=== PATIENT | female | born 1945 | race Two or more races ===

== ENCOUNTER 2025-02-02 23:43 | Emergency (ER) | payer MEDICAID, SELFPAY ==
[2025-02-02 23:47] VITALS: BMI 35.2
[2025-02-02 23:51] VITALS: BP 120/59; PULSE 132; RESP 19; TEMP 36.8; O2SAT 97
--- NOTE | 2025-02-03 00:16 | PD.EDADULT ---
ED General RME/HPI General Chief complaint: General Adult/Misc Complain Stated complaint: BLEEDING FROM UROSTOMY Time Seen by Provider: 02/03/25 00:16 Arrival date/time: 02/02/25 23:43 79-year-old female with a colostomy bag presents with complaints of bleeding from the back. Patient states while trying to change the bag she ripped the bag off suddenly and the bleeding began. Patient denies any abdominal pain nausea or vomiting and states that the bleeding has decreased since being in the emergency department. Limitations: no limitations Related Data Home Medications ?Medication ?Instructions ?Recorded ?Confirmed atenolol 50 mg tablet 50 mg PO QDAY 11/30/22 11/30/22 hydroxyzine HCl 25 mg tablet 25 mg PO HS PRN Sleep 11/30/22 11/30/22 lisinopril 10 mg tablet 10 mg PO QDAY 11/30/22 11/30/22 Previous Rx's ?Medication ?Instructions ?Recorded hydrocodone 5 mg-acetaminophen 325 1 tab PO Q8H PRN pain #14 tabs 12/29/22 mg tablet Allergies Allergy/AdvReac Type Severity Reaction Status Date / Time No Known Drug Allergies Allergy Verified 02/02/25 23:51 Review of Systems Constitutional Constitutional: Denies chills and Denies fever(s) Cardiovascular Cardiovascular: Denies chest pain and Denies dyspnea Respiratory Respiratory: Denies cough and Denies dyspnea Gastrointestinal Gastrointestinal: Denies abdominal pain, Denies nausea and Denies vomiting Musculoskeletal Musculoskeletal: Denies back pain and Denies myalgias Integumentary/Breasts Skin/Breast: Denies sores and Reports wounds (Colostomy site) Hematologic/Lymphatic Hematologic/Lymphatic: Denies easy bleeding and Denies easy bruising Past Medical History Past Medical History NEUROLOGIC: Negative Neurological Disorders CARDIAC: Positive Cardiac Disorders and Hypertension; Negative Congestive Heart Failure RESPIRATORY: Negative Chronic Obstructive Pulmonary Disease (COPD) or Asthma GASTROINTESTINAL: Positive Gastrointestinal Disorders and Diverticulitis GENITOURINARY: Negative Genitourinary Disorders or Renal Disease REPRODUCTIVE: Positive Previous Pregnancies; Negative Endometriosis, Pelvic Inflammatory Disease or Uterine Prolapse MUSCULOSKELETAL: Negative Musculoskeletal Disorders ENDOCRINE: Negative Endocrine Disorders, Diabetes Mellitus Type 1 or Diabetes Mellitus Type 2 HEMATOLOGIC: Negative Blood Disorders or Sickle Cell Disease PSYCHO/SOCIAL: Positive Anxiety; Negative Depression OTHER HISTORY: Negative Autoimmune Disease, Blood Transfusions, Blood Transfusion Reaction, Anesthesia Reactions or Cancer Family History FAMILY HISTORY: Negative Family Psychiatric Problems, Family Respiratory Disorders, Family Cardiac Disorders, Family Gastrointestinal Problems, Family Cancer, Family Surgery or Family Anesthesia Reaction Surgical History SURGICAL: Positive Pacemaker and Abdominal Surgery Social History SMOKING STATUS: Never smoker ED Exam General Limitations: Present no limitations General appearance: Present alert and in no apparent distress Chest Chest inspection: Present normal inspection and symmetric chest wall rise Respiratory Respiratory exam: Present normal lung sounds bilaterally Cardiovascular Cardiovascular exam: Present regular rate, normal rhythm and normal heart sounds Abdominal Exam Abdominal exam: Present soft and other (Patent colostomy bag present scant bleeding no evidence of infection nontender abdomen otherwise unremarkable); Absent distention Extremities Exam Extremities exam: Present normal inspection and full ROM Back Exam Back exam: Present normal inspection and full ROM Neurological Exam Neurological exam: Present alert, oriented X3 and CN II-XII intact Psychiatric Psychiatric exam: Present normal affect and normal mood Skin Skin exam: Present warm, dry, intact and normal color Course Course Course Narrative: 79-year-old female presents with bleeding from colostomy bag. It appears to be superficial with rough handling of removing the bag. The bleeding has been well-controlled the ostomy is patent she is afebrile nontoxic-appearing and asymptomatic. Patient is educated on the appropriate way of removing colostomy bags and advised of the high vasculature and easy cause of bleeding. She is also advised to follow-up with her primary care provider as needed Quality Measures none Orders Category Date Time Status Colostomy Change Med 02/03/25 00:23 Once 1 applicatio TOPICAL X1 ONE Vital Signs Vital signs: Vital Signs Temperature 98.3 F 02/02/25 23:51 Pulse Rate 132 H 02/02/25 23:51 Respiratory Rate 19 02/02/25 23:51 Blood Pressure 120/59 L 02/02/25 23:51 Pulse Oximetry (%) 97 02/02/25 23:51 Oxygen Delivery Method Room Air 02/02/25 23:51 Discharge Plan Plan Patient Disposition: HOME (Self Care) Prescriptions/Referrals Prescriptions/Med Rec: No Action lisinopril 10 mg Tablet 10 mg PO QDAY hydroxyzine HCl 25 mg Tablet 25 mg PO HS PRN (Reason: Sleep) atenolol 50 mg Tablet 50 mg PO QDAY hydrocodone-acetaminophen 5-325 mg tablet 1 tab PO Q8H MDD 3 tabs PRN (Reason: pain) Qty: 14 0RF Problem List Clinical Impression: Colostomy care Patient/Caregiver Discharge Instructions Discharge Activity: activity as tolerated Additional Instructions: Because there is a lot of blood vessels at the colostomy site sometimes changing the bag roughly or pulling the skin can cause bleeding try to be as gentle as possible to avoid bleeding. Follow-up with your primary care provider as needed. Return to the emergency department if symptoms should worsen Print Language: [place]an Stand Alone Forms: Kate Award Info., Patient Portal Info Letter MDM Medication Administration(s) Medication Administration History Non-Formulary Medication (Colostomy Change) 1 applicatio TOPICAL X1 ONE Stop: 02/03/25 00:24
== END 2025-02-03 01:17 | disposition home or self-care (01) ==
LOC: SERX 02-03 01:12
PROVIDERS: Emergency Provider Emergency Medicine
DX: K94.01 Colostomy hemorrhage (principal); Y83.3 Surgical operation with formation of external stoma as the cause of abnormal reaction of the patient, or of later complication, without mention of misadventure at the time of the procedure
CPT/HCPCS: 99281

== ENCOUNTER 2025-02-10 00:39 | Emergency (ER) | payer MEDICAID, SELFPAY ==
[2025-02-10 00:58] VITALS: BP 144/72; PULSE 82; RESP 19; TEMP 37.3; O2SAT 98; BMI 31.2
--- NOTE | 2025-02-10 01:12 | PD.EDADULT ---
ED General RME/HPI General Chief complaint: General Adult/Misc Complain Stated complaint: BLEEDING FROM COLOSTOMY Time Seen by Provider: 02/10/25 00:43 Arrival date/time: 02/10/25 00:39 79-year-old female with a colostomy bag returns to the ED for bleeding at stoma cite from the bag change. Patient's son became concerned when the bleeding appeared to be a large quantity. Patient denies any abdominal pain nausea or vomiting fever, chills or discharge from area. Limitations: no limitations Related Data Home Medications ?Medication ?Instructions ?Recorded ?Confirmed atenolol 50 mg tablet 50 mg PO QDAY 11/30/22 11/30/22 hydroxyzine HCl 25 mg tablet 25 mg PO HS PRN Sleep 11/30/22 11/30/22 lisinopril 10 mg tablet 10 mg PO QDAY 11/30/22 11/30/22 Previous Rx's ?Medication ?Instructions ?Recorded hydrocodone 5 mg-acetaminophen 325 1 tab PO Q8H PRN pain #14 tabs 12/29/22 mg tablet Allergies Allergy/AdvReac Type Severity Reaction Status Date / Time No Known Drug Allergies Allergy Verified 02/10/25 00:40 Review of Systems Constitutional Constitutional: Denies chills and Denies fever(s) Gastrointestinal Gastrointestinal: Denies abdominal pain, Denies nausea and Denies vomiting Integumentary/Breasts Skin/Breast: Denies unusual bruising and Reports wounds (Colostomy bag ) Hematologic/Lymphatic Hematologic/Lymphatic: Denies easy bleeding and Denies easy bruising Past Medical History Past Medical History NEUROLOGIC: Negative Neurological Disorders CARDIAC: Positive Cardiac Disorders and Hypertension; Negative Congestive Heart Failure RESPIRATORY: Negative Chronic Obstructive Pulmonary Disease (COPD) or Asthma GASTROINTESTINAL: Positive Gastrointestinal Disorders and Diverticulitis GENITOURINARY: Negative Genitourinary Disorders or Renal Disease REPRODUCTIVE: Positive Previous Pregnancies; Negative Endometriosis, Pelvic Inflammatory Disease or Uterine Prolapse MUSCULOSKELETAL: Negative Musculoskeletal Disorders ENDOCRINE: Negative Endocrine Disorders, Diabetes Mellitus Type 1 or Diabetes Mellitus Type 2 HEMATOLOGIC: Negative Blood Disorders or Sickle Cell Disease PSYCHO/SOCIAL: Positive Anxiety; Negative Depression OTHER HISTORY: Negative Autoimmune Disease, Blood Transfusions, Blood Transfusion Reaction, Anesthesia Reactions or Cancer Family History FAMILY HISTORY: Negative Family Psychiatric Problems, Family Respiratory Disorders, Family Cardiac Disorders, Family Gastrointestinal Problems, Family Cancer, Family Surgery or Family Anesthesia Reaction Surgical History SURGICAL: Positive Pacemaker and Abdominal Surgery Social History SMOKING STATUS: Never smoker ED Exam General Limitations: Present no limitations General appearance: Present alert and in no apparent distress Abdominal Exam Abdominal exam: Present soft and normal bowel sounds Neurological Exam Neurological exam: Present alert, oriented X3 and CN II-XII intact Psychiatric Psychiatric exam: Present normal affect and normal mood Skin Skin exam: Present warm, dry, intact and normal color Other Other exam information: 0208: Patient evaluated in room 8 for possible bleeding around the stoma. Patient appears in no acute distress. She is not diaphoretic and otherwise repeat blood pressure is stable here. The patient is placed in the bed. I do not see active bleeding from the stoma. She does have some friable skin around the stoma but there is no active bleeding at this time. Nurses have placed some Surgicel right around the stoma skin and will reevaluate in 5 to 10 minutes to see if there is any active bleeding. Course Course Course Narrative: 0200: Triage nurse concerned regarding the patient's stoma site actively bleeding. Patient moved to room 8. Quality Measures none Orders Category Date Time Status Wound Care NOW Care 02/10/25 01:15 Active Vital Signs Vital signs: Vital Signs Temperature 99.2 F 02/10/25 00:58 Pulse Rate 82 02/10/25 00:58 Respiratory Rate 19 02/10/25 00:58 Blood Pressure 144/72 H 02/10/25 00:58 Pulse Oximetry (%) 98 02/10/25 00:58 Oxygen Delivery Method Room Air 02/10/25 00:58 Discharge Plan Plan Patient Disposition: HOME (Self Care) Patient condition on transfer: Stable Prescriptions/Referrals Prescriptions/Med Rec: No Action lisinopril 10 mg Tablet 10 mg PO QDAY hydroxyzine HCl 25 mg Tablet 25 mg PO HS PRN (Reason: Sleep) atenolol 50 mg Tablet 50 mg PO QDAY hydrocodone-acetaminophen 5-325 mg tablet 1 tab PO Q8H MDD 3 tabs PRN (Reason: pain) Qty: 14 0RF Problem List Clinical Impression: Colostomy care Patient/Caregiver Discharge Instructions Discharge Activity: activity as tolerated Additional Instructions: Been changing the colostomy bag sometimes they will bleed you should apply pressure you may even use ice with a towel applied to the area for the bleeding to stop. If bleeding continues or is in large quantities return to the emergency department. Otherwise follow-up with your primary care provider Print Language: Kiswahili Stand Alone Forms: Kate Award Info., Patient Portal Info Letter
--- NOTE | 2025-02-10 01:31 | PC.NURSE ---
stoma pink and moist. no bleeding at this time. dressing applied and pt will replace bag when she gets home.
--- NOTE | 2025-02-10 02:00 | PC.NURSE ---
POt was discharged. while pt was at registration desk, started bleeding through dressing. pt taken to ER rm 8. Dressing removed. small pinhole size bleed noted at about five o clock on stoma. bleed is on the skin just lateral to stoma. steady stream of blood. MD arrived to pt side. offered MD my observation. care turned over to and JONNY Gotti.
[2025-02-10 03:22] LABS: INR 1.1 (0.9-1.3); Prothrombin Time 11.4 Seconds (9.0-12.2)
[2025-02-10 03:35] LABS: Basophils # (Auto) 0.0 Thou/mm3 (0.0-0.2); Basophils % (Auto) 1 % (0-2.5); Eosinophils # (Auto) 0.2 Thou/mm3 (0.0-0.5); Eosinophils % (Auto) 4 % (0-10); Hematocrit 31.2 % (36.0-46.0); Hemoglobin 9.9 g/dL (12.0-16.0); Immature Granulocytes Auto 0.02 Thou/mm3 (0.00-0.00); Lymphocytes # (Auto) 1.3 Thou/mm3 (1.0-4.8); Lymphocytes % (Auto) 25 % (10-50); Mean Corpuscular HGB Conc 31.7 g/dl (31.0-37.0); Mean Corpuscular Hemoglobin 30.2 pg (25.0-35.0); Mean Corpuscular Volume 95 fL (80-100); Monocytes # (Auto) 0.5 Thou/mm3 (0.0-0.8); Monocytes % (Auto) 9 % (0-12); Neutrophils # (Auto) 3.2 Thou/mm3 (1.8-7.7); Neutrophils % (Auto) 62 % (37-80); Nucleated Red Blood Cell # 0.00 Thou/mm3 (0.00-0.00); Nucleated Red Blood Cell % 0 /100 WBC (0); Platelet Count 153 Thou/mm3 (140-440); RDW Standard Deviation 47.5 fL (36.4-46.3); Red Blood Count 3.28 Miln/mm3 (4.00-5.20); White Blood Count 5.2 Thou/mm3 (3.6-11.0)
[2025-02-10 04:08] VITALS: BP 131/69; PULSE 69; RESP 18; TEMP 37.1; O2SAT 97
[2025-02-10 05:09] VITALS: BP 144/77; PULSE 62; RESP 16; O2SAT 95
== END 2025-02-10 05:40 | disposition home or self-care (01) ==
PROVIDERS: Emergency Provider Emergency Medicine; PCP Family Medicine
DX: K94.01 Colostomy hemorrhage (principal); Y83.2 Surgical operation with anastomosis, bypass or graft as the cause of abnormal reaction of the patient, or of later complication, without mention of misadventure at the time of the procedure
CPT/HCPCS: 36415; 85025; 85610; 99282